=== PATIENT | male | born 1995 | race Caucasian/White ===

== ENCOUNTER 2019-08-27 22:39 | Emergency (ER) | payer BC, SELFPAY ==
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
== END 2019-08-27 23:38 | disposition home or self-care (01) ==
LOC: MADERS 22:39
DX: S63.502A Unspecified sprain of left wrist, initial encounter (principal); S20.212A Contusion of left front wall of thorax, initial encounter; R07.89 Other chest pain; V40.5XXA Car driver injured in collision with pedestrian or animal in traffic accident, initial encounter